=== PATIENT | male | born 1985 | race Caucasian/White ===

== ENCOUNTER 2021-06-25 13:22 | Emergency (ER) | payer BC ==
[~2021-06-25 13:22] MED LIST: Iopamidol-370 76% 500 ML 1 ML ONE
[2021-06-25] MEDS ORDERED: Ondansetron PF 4 MG/2 ML Vial ONE (16:11)
[2021-06-25] MEDS ORDERED: Morphine 4 MG/ML VIAL ONE (16:11)
[2021-06-25] MEDS ORDERED: Clindamycin/D5W 900 mg/50 ml Premix Bag ONE (16:23)
[2021-06-25 16:29] LABS: #Eosinphils 0.2 thou/uL (0.0-0.7); #Lymphocytes 1.9 thou/uL (1.20-3.40); #Neutrophils 10.7 thou/uL (1.40-6.50); %Basophils 0.3 % (0.0-1.0); %Eosinophils 1.3 % (0.0-10.0); %Lymphocytes 13.6 % (21.0-51.0); %Monocytes 7.1 % (0.0-10.0); %Neutrophils 77.7 % (42.0-75.0); Hemoglobin 17.5 g/dL (14.0-18.0); Mean Corpuscular HGB CONC 34.4 g/dL (32.0-36.0); Mean Corpuscular Hemoglobin 32.9 pg (27.0-31.0); Mean Corpuscular Volume 95.6 fL (78.0-98.0); Mean Platelet Volume 6.7 fL (7.4-10.4); Platelet Count 342 thou/uL (130-400); Red Blood Cell (RBC) Count 5.32 mill/uL (4.70-6.10); White Blood Cell (WBC) Count 13.8 thou/uL (4.8-10.8)
[2021-06-25 17:03] LABS: ALT (SGPT) 26 U/L (8-55); AST (SGOT) 35 U/L (5-34); Albumin 3.9 g/dL (3.5-5.0); Alkaline Phosphatase 122 U/L (40-110); Anion Gap 14 mmol/L (10-20); BUN (Urea Nitrogen) 4 mg/dL (8.9-20.6); CRP (Inflammatory) 2.14 mg/dL (= or < 0.5); Calc. Creatinine Clearance 0 mL/min (70-130); Calcium 9.8 mg/dL (7.8-10.44); Carbon Dioxide 22 mmol/L (22-29); Chloride 103 mmol/L (98-107); Globulin 4.4 g/dL (2.4-3.5); Glucose 93 mg/dL (70-105); Potassium 5.3 mmol/L (3.5-5.1); Protein, Total 8.3 g/dL (6.0-8.3); Sodium 134 mmol/L (136-145)
== END 2021-06-25 19:14 | disposition home or self-care (01) ==
LOC: ERS 13:22
DX: A41.9 Sepsis, unspecified organism (principal); K04.7 Periapical abscess without sinus; F17.210 Nicotine dependence, cigarettes, uncomplicated
CPT/HCPCS: 70491; 80053; 85025; 85652; 86140; 96365; 96375; J2270; J2405; J3490; Q9967